=== PATIENT | female | born 1975 | race Caucasian/White ===

== ENCOUNTER 2019-08-25 18:21 | Emergency (ER) | payer OTHER ==
[~2019-08-25] VITALS: Ht 152.4 cm; Wt 59.0 kg
[2019-08-25 19:22] VITALS: Ht 152.4 cm; Wt 59.0 kg
[2019-08-25 20:55] VITALS: BP 113/80
== END 2019-08-25 20:55 | disposition home or self-care (01) ==
LOC: ED 18:21
DX: R05 Cough (principal); Z20.828 Contact with and (suspected) exposure to other viral communicable diseases
CPT/HCPCS: Q0092